=== PATIENT | male | born 1960 | race Caucasian/White ===

== ENCOUNTER → 2023-11-02 19:46 | Outpatient (REF) | payer BC, SELFPAY | LOC: MRI 3T 19:46 | PROVIDERS: ATTENDING PHYSICIAN Surgery; FAMILY PHYSICIAN Family Medicine | DX: N40.2 Nodular prostate without lower urinary tract symptoms (principal) | CPT/HCPCS: 72197; A9575 ==

== ENCOUNTER → 2023-12-22 10:03 | Outpatient (REF) | payer BC, SELFPAY | LOC: RCS 10:03 | PROVIDERS: ATTENDING PHYSICIAN Internal Medicine Interventional Cardiology; FAMILY PHYSICIAN Family Medicine | DX: I25.2 Old myocardial infarction (principal); I25.10 Atherosclerotic heart disease of native coronary artery without angina pectoris | CPT/HCPCS: 93306 ==